=== PATIENT | female | born 1990 | race Caucasian/White ===

== ENCOUNTER 2017-09-23 15:19 | Emergency (ER) | payer OTHER ==
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
[2017-09-23] MEDS ORDERED: MORPHINE SULFATE 4 MG/ML INJ IM ONE (16:00)
[2017-09-23] MEDS ORDERED: ACETAMINOPHEN/HYDROcodone 325 MG/5 MG TAB PO ONE (16:00)
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
[2017-09-23] MEDS ORDERED: IBUP1TAB7 PO (16:12)
[2017-09-23] MEDS ORDERED: NORC5TAB PO (16:12)
== END 2017-09-23 17:11 | disposition home or self-care (01) ==
LOC: NEPD 15:19
DX: S31.41XA Laceration without foreign body of vagina and vulva, initial encounter (principal); S80.12XA Contusion of left lower leg, initial encounter; V18.4XXA Pedal cycle driver injured in noncollision transport accident in traffic accident, initial encounter
CPT/HCPCS: 96372; 99283; J2270